=== PATIENT | female | born 1990 | race Caucasian/White ===

== ENCOUNTER 2020-05-12 08:21 | Emergency (ER) | payer OTHER ==
[~2020-05-12] VITALS: Ht 167.6 cm; Wt 87.5 kg
[2020-05-12 08:30] VITALS: BP 112/87
[2020-05-12] MEDS ORDERED: TORADOL IM STA (09:06)
[2020-05-12] MEDS ORDERED: TORADOL ONE (09:17)
[2020-05-12 09:49] VITALS: BP 120/68
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
== END 2020-05-12 10:21 | disposition home or self-care (01) ==
LOC: ER 08:21
DX: S00.83XA Contusion of other part of head, initial encounter (principal); Z90.49 Acquired absence of other specified parts of digestive tract; Z88.7 Allergy status to serum and vaccine; W22.8XXA Striking against or struck by other objects, initial encounter; Y93.89 Activity, other specified; Y92.89 Other specified places as the place of occurrence of the external cause; Y99.0 Civilian activity done for income or pay
CPT/HCPCS: 70486; 96372; 99284; J1885

== ENCOUNTER → 2021-05-08 | Outpatient (CLI) | payer BC ==
--- NOTE | 2021-05-08 18:06 | DIREP ---
PROCEDURE:XR SPINE CERVICAL 2 OR 3 VIEWS COMPARISON:None. INDICATIONS:CERVICALGIA TECHNIQUE:AP, lateral, and dens views of the cervical spine are provided. FINDINGS: ALIGNMENT:Normal. VERTEBRAE:Normal. DISK SPACES:[id number] C6-7 ventral spondylosis. CERVICAL RIBS:None. OTHER:Normal. CONCLUSION: 1. [id number] C6-7 ventral spondylosis without significant disc space narrowing. Dictated by: James Roman MD on 05/08/2021 at 05:56 PM
--- NOTE | 2021-05-08 18:09 | DIREP ---
PROCEDURE:XRAY SPINE LUMBAR 2-3 VWS COMPARISON:None. INDICATIONS:LOW BACK PAIN TECHNIQUE:AP, lateral, and coned down lateral views of the lumbar spine are provided. FINDINGS: ALIGNMENT:18 of upper lumbar levoscoliosis VERTEBRAE:Normal. DISK SPACES:Prominent ventral spondylosis from T11-12 through L2-3, greatest at L1-2. There is moderate L2-3 and L5-S1 degenerative disc space narrowing. SPONDYLOLISTHESIS:None. SACROILIAC JOINTS:Normal. OTHER:Cholecystectomy clips are present in the right upper quadrant. CONCLUSION: 1. Lower thoracic and upper lumbar ventral spondylosis, greatest at L1-2. 2. There is moderate L2-3 and L5-S1 degenerative disc space narrowing. 3. 18 upper lumbar levoscoliosis. Dictated by: James Roman MD on 05/08/2021 at 06:05 PM
== END | disposition home or self-care (01) ==
LOC: RAD 16:59
PROVIDERS: ATTEND Internal Medicine
DX: M47.816 Spondylosis without myelopathy or radiculopathy, lumbar region (principal); M47.814 Spondylosis without myelopathy or radiculopathy, thoracic region; M41.86 Other forms of scoliosis, lumbar region; M47.812 Spondylosis without myelopathy or radiculopathy, cervical region
CPT/HCPCS: 72040; 72100

== ENCOUNTER 2021-07-11 07:32 | Emergency (ER) | payer OTHER, BC ==
[~2021-07-11] VITALS: Ht 167.6 cm; Wt 90.7 kg
[2021-07-11 07:39] VITALS: BP 140/89
[2021-07-11] MEDS ORDERED: TORADOL ONE (07:50)
--- NOTE | 2021-07-11 07:53 | ER.PDOC ---
General Chief Complaint: Requesting Medical Care Stated Complaint: BACK INJURY Time seen by MD: 07:50 Source: patient Exam Limitations: no limitations History of Present Illness Initial Comments Low back pain this morning. Patient lost her balance, falling backwards and twisting her lower back. No numbness or tingling of lower extremities. No urinary or bowel incontinence. Timing/Duration: this morning Severity/Quality: moderate Radiation: buttocks (right), lower legs (right) Method of Injury: fell Associated Symptoms: muscle spasms, lower back pain Allergies: Coded Allergies: Influenza Virus Vaccines (Verified Allergy, Unknown, 05/12/20) Past Medical History Medical History: no pertinent history Surgical History: cholecystectomy, , knee Family History Significant Family History: no pertinent family hx Social History Drug Use: none Review of Systems Constitutional: no symptoms reported EENTM: no symptoms reported Respiratory: no symptoms reported Cardiovascular: no symptoms reported Gastrointestinal: no symptoms reported Musculoskeletal: see HPI All Other Systems: Reviewed and Negative Physical Exam General Appearance: No Apparent Distress, WD/WN HEENT: PERRL/EOMI, Normal ENT Inspection, TMs Normal, Pharynx Normal Neck: Non-Tender, Normal Alignment Cardiovascular/Respiratory: Regular Rate, Rhythm, No M/R/G, Normal Peripheral Pulses, No JVD, Normal Breath Sounds, No Respiratory Distress Gastrointestinal: Normal Bowel Sounds, No Organomegaly, No Pulsatile Mass, Non Tender, Soft Back: Other (right paraspinous muscles) Extremities: No Evidence of Injury, Normal Range of Motion, Non-Tender, No Pedal Edema, Pelvis Stable Neuro/Psych: Alert, [employer] nml/symmetrical, mood/effect nml, No Motor/Sensory Deficits, Relexes nml Skin: Normal Color, Warm/Dry Results/Orders Results/Orders Orders - ABEL CHAPMAN MD Xr Lspine 2-3v (07/11/21 07:48) Ketorolac Tromethamine (Toradol) (07/11/21 07:48) Ketorolac Tromethamine (Toradol) (07/11/21 07:50) Vital Signs Date Time Temp Pulse Resp B/P (MAP) Pulse Ox O2 Delivery O2 Flow Rate FiO2 07/11/21 07:39 98.8 87 18 140/89 (106) 98 Room Air 07/11/21 07:39 98.8 87 18 07/11/21 07:39 98.8 87 20 98 Administered Medications Medications (Trade) Dose Ordered Sig/Jarrell Route PRN Reason Start Time Stop Time Status Last Admin Dose Admin Ketorolac Tromethamine (Toradol) 60 mg STAT STAT IM 07/11/21 07:48 07/11/21 07:49 DC 07/11/21 07:54 60 MG Progress Progress Patient is feeling better after she had a Toradol shot. EKG/XRAY/CT/US XRAY Comments: No fracture of L spine ER DEPART Departure Time of Disposition: 08:33 Disposition: 01 HOME / SELF CARE / HOMELESS Impression: Primary Impression: Low back pain Condition: Improved Referrals: RANDI ASENCIO MD (PCP) PRIMARY CARE PROVIDER Additional Instructions: Tylenol #3 Flexeril Ibuprofen Follow-up with your PCP in 2-3 days Return to ED if worsening pain or concerns Duration or Time Spent with Pa: 20 min Problem Qualifiers Primary Impression: Low back pain Chronicity: acute Back pain laterality: right Sciatica presence: without sciatica Qualified Codes: M54.5 - Low back pain ABEL CHAPMAN MD Jul 11, 2021 07:53
[2021-07-11] MEDS: TORADOL IM STA (07:54)
--- NOTE | 2021-07-11 08:12 | DIREP ---
PROCEDURE:XRAY SPINE LUMBAR 2-3 VWS COMPARISON:[facility], , XRAY SPINE LUMBAR 2-3 VWS, 05/08/2021, 05:11 PM. INDICATIONS:Pain/injury TECHNIQUE:AP, lateral, and coned down lateral views of the lumbar spine are provided. FINDINGS: ALIGNMENT:A mild levoscoliosis is again seen. VERTEBRAE:No compression deformity is seen. Anterior hypertrophic spurring is seen from T11-12 through L2-3. DISK SPACES:Moderate disc space narrowing is again demonstrated at L1-2, L2-3 and L5-S1. SPONDYLOLISTHESIS:None. SACROILIAC JOINTS:Normal. OTHER:Surgical clips are seen the right upper quadrant consistent with cholecystectomy. CONCLUSION:No fracture is demonstrated. Degenerative changes are again seen in the lower thoracic spine and at L1-2 and L2-3 with degenerative disc disease at L1-2, L2-3 and L5-S1. Dictated by: Roe Overton M.D. on 07/11/2021 at 08:08 AM
== END 2021-07-11 08:45 | disposition home or self-care (01) ==
LOC: ER 07:32
DX: M54.5 Low back pain (principal); Z88.8 Allergy status to other drugs, medicaments and biological substances; Z90.49 Acquired absence of other specified parts of digestive tract
CPT/HCPCS: 72100; 96372; 99283; J1885